=== PATIENT | male | born 1975 | race Hispanic/Latino ===

== ENCOUNTER 2020-09-01 07:22 | Day surgery (SDC) | payer OTHER ==
--- OUTSIDE RECORDS SUMMARY | 2020-09-01 07:25 | XMS REPORT | Continuity of Care Document ---
:1975 Author Organization [facility] t Address [address] [place] [address] Care Team Providers Name Role Phone Henry CARRASCO, T Attending Clinician Unavailable Only, Test Attending Clinician Unavailable Problems This patient has no known problems. Allergies, Adverse Reactions, Alerts This patient has no known allergies or adverse reactions. Medications This patient has no known medications. Procedures This patient has no known procedures. Encounters Start End Encounter Admission Attending Care Care Encounter Source Date/Time Date/Time Type Type Clinicians Facility Department ID 2020-07-01 2020-07-01 Letter AIDEN Figueroa [id number] 00:00:00 00:00:00 (Out) Cristine GUTHRIE [id number] [facility] [id number] 2020-06-30 2020-06-30 Laboratory Only, [facility] [id number] 09:23:40 09:38:40 Only Test [place] [id number] [place] [id number] [place] [phone] [id number] Results This patient has no known results.
--- OUTSIDE RECORDS SUMMARY | 2020-09-01 07:25 | XMS REPORT | Summary of Care ---
:1975 Author Organization [facility] Address [address] [place] [id number] Care Team Providers Name Role Phone Pcp, Patient Does Not Have A Primary Care Provider +1-000-00 0-0000 Encounter Details Date Type Department Care Team Description 07/01/2020 Letter (Out) [facility] Cristine Figueroa RN [address] [phone] [place] [address] Allergies No Known Allergiesdocumented as of this encounter (statuses as of 07/01/2020) Medications No known medicationsdocumented as of this encounter (statuses as of 07/01/2020) Active Problems Not on filedocumented as of this encounter (statuses as of 07/01/2020) Social History Tobacco Use Types Packs/Day Years Used Date Never Assessed Sex Assigned at Date Recorded Not on file COVID-19 Exposure Response Date Recorded In the last month, have you been in contact with Yes 06/30/2020 9:16 AM CDT someone who was confirmed or suspected to have Coronavirus / COVID-19? documented as of this encounter Last Filed Vital Signs Not on filedocumented in this encounter Plan of Treatment Health Maintenance Due Date Last Done Comments Depression Screening 1989 DTaP,Tdap,and Td Vaccines (1 - 1996 Tdap) INFLUENZA VACCINE (#1) 2020 PNEUMOCOCCAL 0-64 YEARS COMBINED Aged Out No longer eligible based on SERIES patient's age to complete this topic documented as of this encounter Results Not on filedocumented in this encounter Insurance Payer Benefit Plan / Group Subscriber ID Effective Dates Phone Address Type AETNA AETNA O [id number] 2015-Present HM O documented as of this encounter
--- OUTSIDE RECORDS SUMMARY | 2020-09-01 07:25 | XMS REPORT | Summary of Care ---
:1975 Author Organization [facility] Address [address] [place] [address] Care Team Providers Name Role Phone Pcp, Patient Does Not Have A Primary Care Provider +1-000-00 0-0000 Reason for Visit Reason Comments LAB WORK Auth/Cert Status Reason Specialty Diagnoses / Referred By Referred To Procedures Contact Contact Clinical Medical Procedures [facility] Lab Laboratory COVID TEST [address] [place] [address] Encounter Details Date Type Department Care Team Description 06/30/2020 Laboratory Only [facility] Valente Pierce MD [address] [facility] [id number] [place] [address] Close Exposure to Phlebotomy Only, Ad[facility] Test Covid-19 Virus [facility] (Primary Dx) [address] [place] [address] Allergies No Known Allergiesdocumented as of this [...] this topic documented as of this encounter Procedures Procedure Name Priority Date/Time Associated Diagnosis Comme nts COVID-19 (PCR Routine 06/30/2020 9:54 AM Close Exposure to Re sults for this MOLECULAR TESTING) CDT Covid-19 Virus procedu re are in the results section. documented in this encounter Results COVID-19 (PCR MOLECULAR TESTING) (06/30/2020 9:54 AM CDT) Pathologist Sig nature SARS-CoV-2 PCR Not Detected Not Detected [facility] Specimen Swab - NASOPHARYNGEAL SWAB Narrative Performed At [facility] SARS-CoV-2 Assay is a nucleic acid [facility] amplification test intended for the qualitative detect ion of RNA from SARS-CoV-2 from nasopharyngeal (MACHINE LEATHER TRIMMER) specimens . It is used under Emergency Use Authorizatio n (EUA) by FDA. A positive result is indicative of the presence of SARS-CoV-2 RNA. Clinical correlation with patient hi story and other diagnostic information is necessary to deter mine patient infection status. A negative (Not Detected) result does not preclude SARS-CoV-2 infection. Clinical correlation with david ent history and other diagnostic information should be use d in patient management decisions. Invalid: Unable to generate a valid test result on thi s specimen. Please submit a new specimen for repeat te sting if clinically indicated. Performing Organization Address City/State/Zipcode Phone Number [facility] CLIA: [id number] [place], [place] [id number] [address] [place] [address] documented in this encounter Visit Diagnoses Diagnosis Close Exposure to Covid-19 Virus - Prima ry documented in this encounter documented as of this encounter
[2020-09-01] MEDS: Ringers Lactate 1,000 ML IV ONE (07:30)
[2020-09-01] MEDS ORDERED: FENTANYL CITR 100 MCG/2 ML ONE (08:14)
[2020-09-01] MEDS ORDERED: propofoL 200 MG/20 ML VIAL IV ONE (08:14)
[2020-09-01] MEDS ORDERED: LIDOCAINE 2% MPF 5 ML VIAL ONE (08:14)
[2020-09-01] MEDS ORDERED: MIDAZOLAM HCL 2 MG/2 ML INJ ONE (08:14)
[2020-09-01] MEDS ORDERED: dexAMETHasone 4 MG/ML VIAL ONE (08:15)
[2020-09-01] MEDS ORDERED: BUPIVACA 0.25%/EPI 0.0005% MDV 50 ML VIAL ONE (08:18)
--- NOTE | 2020-09-01 08:55 | P.OP ---
Preoperative diagnosis: Upper Back Sebaceous Cyst Postoperative diagnosis: Upper Back Sebaceous Cyst Primary procedure: Wide Excisional Debridement of Upper Central Back Cyst Anesthesia: GETA + Local Estimated blood loss: <2cc Specimen: Debridement Tissue Findings: Sebacous Cyst ~ 3cm round, no abscess to subcutaneous fat Complications: None Transferred to: Recovery Room Condition: Good
[2020-09-01] MEDS ORDERED: KETOROLAC 30 MG/ML INJ ONE (08:59)
--- NOTE | 2020-09-01 09:15 | OP ---
Date of Procedure: 09/01/2020 Surgeon: Bolivar Troy MD, Preoperative Diagnosis: Upper back sebaceous cyst. Postoperative Diagnosis: Upper back sebaceous cyst. Procedure Performed: Wide excisional debridement of upper back sebaceous cyst. Anesthesia: General endotracheal plus local with 0.25% Marcaine with epinephrine. Estimated Blood Loss: Less than 10 mL. Specimen: Debrided tissue. Findings: Sebaceous cyst approximately 3 cm round. No abscess extended to the subcutaneous fat. Complications: None. Disposition: Transferred to the recovery room in good condition. Procedure In Detail: After informed consent was obtained, patient was brought to the operating room, prepped and draped in the usual sterile fashion. After adequate anesthesia was achieved, an ellipse skin was taken out of the upper central back overlying approximately 3 cm area of sebaceous cyst. I dissected down to subcutaneous tissues and circumferentially around to take all cyst components and debrided the tissue until I got down to good healthy bleeding subcutaneous fat. I removed all infect ed tissues, sent off for pathologic examination. The area was copiously irrigated multiple times unt il completely clear and closed with interrupted 2-0 nylon sutures. A sterile dressing was placed ove r top. The patient tolerated the procedure well without any evidence of complication and transferred to PACU in good condition. All counts were correct at the e nd of the case. IRENE/ABEL Voice ID: [id number] Report ID: [id number]
[2020-09-01] MEDS ORDERED: MORPHINE 4 MG/ML SYR ONE (09:25)
[2020-09-01] MEDS ORDERED: ONDANSETRON 4 MG/2 ML VIAL ONE (09:25)
[2020-09-01 10:29] VITALS: BP 117/86; TEMP 97.1; O2SAT 98
== END 2020-09-01 10:15 | disposition home or self-care (01) ==
LOC: OR 07:22
PROVIDERS: ATTEND Surgery
PROC: 0JB70ZZ Excision of Back Subcutaneous Tissue and Fascia, Open Approach (ICD-10-PCS; principal; 2020-09-01 08:30)
DX: L72.0 Epidermal cyst (principal); Z20.828 Contact with and (suspected) exposure to other viral communicable diseases
CPT/HCPCS: 88304; 11403; U0002; J2704; J1100; J2250; J3010; J7120; J2405; 88305